=== PATIENT | male | born 2000 | race Two or more races ===

== ENCOUNTER 2022-10-25 22:07 | Emergency (ER) | payer OTHER ==
[~2022-10-25] VITALS: Ht 175.3 cm; Wt 79.2 kg
[2022-10-25 22:09] VITALS: BP 136/70
== END 2022-10-25 22:29 | disposition left against medical advice (07) ==
LOC: M ED 22:07
DX: Z53.21 Procedure and treatment not carried out due to patient leaving prior to being seen by health care provider (principal)

== ENCOUNTER → 2022-11-17 | Outpatient (CLI) | payer OTHER | LOC: M PLAIMG 09:28 → EDUNIT# 10:00 | PROVIDERS: ATTEND Physician Assistant | DX: M79.672 Pain in left foot (principal); M79.661 Pain in right lower leg; M79.662 Pain in left lower leg ==